=== PATIENT | female | born 1945 | race Caucasian/White ===

== ENCOUNTER 2017-05-23 15:45 | Inpatient (IN) ==
[2017-05-23 16:42] LABS: Basophils # 0.1 10*3/uL (0.0-0.2); Basophils % 0.6 % (0.0-0.8); Eosinophils # 0.2 10*3/uL (0.0-0.87); Eosinophils % 2.1 % (0.00-10.9); Hematocrit 42.8 VOL% (35.7-47.0); Hemoglobin 14.1 GM/DL (12.0-16.0); Immature Granulocytes % 0.3 %; Immature Granulocytes Absolute 0.03 #; Lymphocytes % 38.5 % (21.3-54.2); Mean Corpuscular HGB Conc 32.9 GM/DL (32-36); Mean Corpuscular Hemoglobin 29 PG (27-34); Mean Corpuscular Volume 87.2 FL (87-102); Monocytes # 0.7 10*3/uL (0.11-0.8); Monocytes % 7.1 % (1.7-12.7); Neutrophils # 5.4 10*3/uL (1.4-7.4); Neutrophils % 51.4 % (38.7-73.9); Platelet Count 271 T/CUMM (130-400); Red Blood Count 4.91 MC/CUMM (3.8-5.5); Red Cell Distribution Width 13.8 % (9.3-17.3); White Blood Count 10.5 T/CUMM (4-12)
[2017-05-23 17:07] LABS: Albumin 3.7 G/DL (3.4-5.0); Bilirubin,Total 0.4 MG/DL (0.2-1.0); Calcium 8.9 MG/DL (8.5-10.1); Magnesium 2.3 MG/DL (1.8-2.4); Osmolality,Calculated 283.1 MOS/KG (273-304); Potassium 3.9 MMOL/L (3.5-5.1); Total Protein 7.1 G/DL (6.4-8.3)
[2017-05-23 17:11] LABS: Troponin I Only 1.45 NG/ML (0.00-0.045)
[2017-05-23] MEDS ORDERED: NITROGLYCERIN SL 0.4 MG TABLET SL PRN (17:53)
[2017-05-23] MEDS ORDERED: ONDANSETRON 4 MG/2 ML VIAL IV PRN (18:12)
[2017-05-23] MEDS ORDERED: ZALEPLON 5 MG CAPSULE PO PRN (18:12)
[2017-05-23] MEDS ORDERED: ACETAMINOPHEN 325 MG TABLET PO PRN (18:12)
[2017-05-23] MEDS ORDERED: guaiFENesin/DM ER 600-30 MG TABLET PO PRN (18:12)
[2017-05-23] MEDS ORDERED: BISACODYL 5 MG TABLET PO PRN (18:12)
[2017-05-23] MEDS ORDERED: diphenhydrAMINE CAP 25 MG CAPSULE PO PRN (18:12)
[2017-05-23] MEDS ORDERED: ROSUVASTATIN 20 MG TABLET PO SCH (21:00)
[2017-05-23 21:19] LABS: CKMB % 6.3 %
[2017-05-23 21:22] LABS: Troponin I Only 1.57 NG/ML (0.00-0.045)
[2017-05-23] MEDS: METOPROLOL TARTRATE 25 MG TABLET PO SCH (21:55)
[2017-05-24] MEDS ORDERED: DIAZEPAM 5 MG TABLET PO ONE (06:24)
[2017-05-24] MEDS ORDERED: diphenhydrAMINE CAP 50 MG CAPSULE PO ONE (06:25)
[2017-05-24] MEDS: METOPROLOL TARTRATE 25 MG TABLET PO SCH (08:57)
[2017-05-24] MEDS ORDERED: ASPIRIN EC 81 MG TABLET PO SCH (09:00)
[2017-05-24] MEDS ORDERED: PANTOPRAZOLE 40 MG TABLET PO SCH (09:00)
[2017-05-24] MEDS ORDERED: HEPARIN/NACL 0.9% 2 UNITS/ML 2,000 ML IV ONE (11:25)
[2017-05-24] MEDS ORDERED: LIDOCAINE 1% 20 ML VIAL ONE (11:25)
[2017-05-24] MEDS ORDERED: NITROGLYCERIN DRIP 50 MG/250 ML BOTTLE IV ONE (11:28)
[2017-05-24] MEDS ORDERED: HYDROmorphone 2 MG/1 ML VIAL ONE (11:28)
[2017-05-24] MEDS ORDERED: MIDAZOLAM 2 MG/2 ML VIAL ONE (11:28)
[2017-05-24] MEDS ORDERED: VERAPAMIL 5 MG/2 ML VIAL ONE (11:28)
[2017-05-24] MEDS ORDERED: ENOXAPARIN 30 MG/0.3 ML SYRINGE ONE (12:10)
[2017-05-24] MEDS ORDERED: METOPROLOL SUCCINATE XL 25 MG TABLET PO SCH (13:30)
[2017-05-24 16:49] VITALS: BP 121/69
[2017-05-25] MEDS ORDERED: ROSUVASTATIN 20 MG TABLET PO SCH (09:00)
== END 2017-05-24 17:50 | disposition home or self-care (01) | DRG 282 ==
LOC: EDBD → EDUNIT# → N.ED 15:45 → N.EDINP 17:52 → N.TELEN 19:47
PROVIDERS: ADMIT Internal Medicine Cardiovascular Disease; ATTEND Internal Medicine Cardiovascular Disease
PROC: CLCCHCL (ICD-10-PCS; 2017-05-24 11:15)